=== PATIENT | male | born 1975 | race Caucasian/White ===

== ENCOUNTER 2020-02-11 18:09 | Emergency (ER) | payer OTHER, SELFPAY ==
[2020-02-11 18:16] VITALS: BP 148/89; PULSE 97; RESP 20; TEMP 37; O2SAT 99
--- NOTE | 2020-02-11 18:39 | ED.SKABFB ---
HPI - Skin/Abscess/Foreign Bdy General Chief complaint: Skin/Abscess/Foreign Body Stated complaint: right elbow infection Time Seen by Provider: 02/11/20 18:27 Source: patient and RN notes reviewed Mode of arrival: ambulatory Limitations: no limitations History of Present Illness HPI narrative: Patient presents today complaining of sores to his right elbow x1 month. States he has been scrubbing his skin with bleach when he gets in the shower. States the areas have improved, but have not gone fully away. He also has some bumps to his left lower leg started to improve. Hx of abscesses and cysts to the face in the past. He has not seen his PCP since onset of symtpoms. Related Data Allergies Allergy/AdvReac Type Severity Reaction Status Date / Time No Known Allergies Allergy Unknown Verified 02/11/20 18:30 Review of Systems Review of Systems: Narrative: CONSTITUTIONAL: Denies body aches, fever, chills, or sweats. EYES: Denies visual changes, redness, or discharge. ENT: Denies rhinorrhea, congestion, sore throat, or otalgia. CARDIOVASCULAR: Denies chest pain, palpitations, or edema. RESPIRATORY: Denies cough or dyspnea. GASTROINTESTINAL: Denies abdominal pain, nausea, vomiting, or diarrhea. GENITOURINARY: Denies dysuria or hematuria. SKIN: Denies rash, itching. +Bumps to right elbow and left lower leg MUSCULOSKELETAL: Denies back pain, joint pain, or myalgia. NEUROLOGIC: Denies headache, numbness, tingling, or weakness. PSYCH: Denies depression or anxiety. [facility] Social History Social History Alcohol intake: never Comments At time of signature, I have reviewed and agree with nursing past medical, surgical, social and family history unless otherwise noted. Please see nursing chart for further information. There is no relevant family history pertinent to the presenting complaint Exam Narrative: Exam Narrative: GENERAL: Well-appearing, well-nourished, and in no acute distress. HEAD: Normocephalic, atraumatic. EYES: EOMI. No redness or drainage. Conjunctivae normal. ENT: Mucous membranes pink and moist. NECK: Normal AROM. CHEST: No respiratory distress. EXTREMITIES: Normal range of motion. No edema. SKIN: Warm, dry, no rash. Capillary refill normal. Normal skin turgor. Patient has an area of healing erythema to the right elbow with 2 very small pustules. No induration or fluctuance noted. Has 1 mildly erythematous scabbed, drying lesion to the left anterior lower leg. NEURO: No focal deficits. Alert and oriented x3. Gait steady. PSYCH: Normal affect. No signs of depression or anxiety. Course Vital Signs Vital signs: Vital Signs Temperature 98.6 F 02/11/20 18:16 Pulse Rate 97 02/11/20 18:16 Respiratory Rate 20 02/11/20 18:16 Blood Pressure 148/89 H 02/11/20 18:16 Pulse Oximetry 99 02/11/20 18:16 Temperature 98.6 F 02/11/20 18:16 Pulse Rate 97 02/11/20 18:16 Respiratory Rate 20 02/11/20 18:16 Blood Pressure 148/89 H 02/11/20 18:16 Pulse Oximetry 99 02/11/20 18:16 Reviewed. Pt has been instructed to follow up with his PCP regarding his elevated blood pressure today. MDM - Skin/Abscess/Foreign Bdy Differential Diagnosis Differential diagnosis: Likely abscess of skin or subcutaneous tissue, cellulitis, eczema, insect bites, impetigo and contact dermatitis Critical Care Time Critical Care Time Critical Care Time: No Discharge Plan Discharge Clinical Impression: Pustular dermatitis Patient Disposition: Home, Self-Care Condition: Stable Instructions: Antibiotic Form Additional Instructions: Please take the clindamycin as prescribed until gone. Follow-up with your doctor in 3 to 4 days if symptoms are not improving. Your blood pressure was elevated above 120/80 today at Urgent Care. This puts you above the threshold for follow up. Please schedule a followup visit with your personal physician as soon as possible, for further evaluation and treatment. Amelia
== END 2020-02-11 18:45 | disposition home or self-care (01) ==
PROVIDERS: Emergency Provider Nurse Practitioner
DX: L30.8 Other specified dermatitis (principal)
CPT/HCPCS: 99213; G0463

== ENCOUNTER 2020-05-08 14:09 | Emergency (ER) | payer OTHER, SELFPAY ==
--- NOTE | ~2020-05-08 | XR_ITS ---
EXAMINATION: XR chest 2V DATE: 05/08/2020 15:33 INDICATION: Shortness of breath TECHNIQUE: PA and lateral views of the chest are obtained. COMPARISON: None available FINDINGS: There are minimal airspace opacities of the mid and lower lung zones. There is no pleural e ffusion or pneumothorax. The cardiomediastinal silhouette is normal. The visualized bones and soft ti ssues are unremarkable. IMPRESSION: 1. Minimal airspace opacities of the mid and lower lung zones, consistent with atelectasis versus pne umonia. Reviewed, dictated and finalized at location B. IMPRESSION: 1. Minimal airspace opacities of the mid and lower lung zones, consistent with atelectasis versus pneumonia.
--- NOTE | ~2020-05-08 | CT_ITS ---
EXAMINATION: CT abdomen pelvis w con DATE: 05/08/2020 16:37 INDICATION: Diffuse abdominal pain. Abdominal distention TECHNIQUE: Computed tomography (CT) of the abdomen and pelvis was performed with 100 cc Omnipaque 350 intravenous contrast. Automated exposure control and iterative reconstruction technique were employe d. Exam dose: 1042.13 mGy-cm total exam DLP. COMPARISON: None. FINDINGS: Emphysematous changes of the lungs are noted. No pulmonary consolidation or mass lesion is noted. Normal heart size. No pericardial or pleural effusion. The liver, gallbladder, bile ducts, spleen, pancreas, pancreatic duct, and adrenal glands are unremar kable. Exophytic up to 2.8 cm upper pole right renal cyst. 1 cm hypoenhancing mid lateral left renal lesion with attenuation of 19 Hounsfield units; this is indeterminate, possibly a cyst. Consider foll ow-up CT imaging in 6 months; of earlier diagnosis is desired, consider MR kidney examination. No urinary tract calculus or hydroureteronephrosis. The urinary bladder is evacuated. Normal caliber of the abdominal aorta. No intraperitoneal or retroperitoneal or pelvic mass lesion or adenopathy or ascites. Very small sliding hiatal hernia. No bowel obstruction, bowel wall thickening, pneumatosis or intrape ritoneal free air. Normal appendix. Small fat-containing umbilical hernia. There is severe degenerative disc disease at L4-5 and moderate degenerative disc disease at L5-S1 wit h vacuum phenomenon. IMPRESSION: Emphysema 2.8 cm exophytic right renal cyst 1 cm hypoenhancing mid lateral left renal lesion with attenuation 19 Hounsfield units, most likely a cyst; consider MR imaging now or follow-up CT imaging in 6 months Very small sliding hiatal hernia Reviewed, dictated and finalized at [facility]. Reviewed, dictated and finalized at location A.
[2020-05-08 14:12] VITALS: BP 143/100; PULSE 110; RESP 18; TEMP 36.3; O2SAT 99
--- NOTE | 2020-05-08 14:17 | ECG_ITS ---
Measurements Intervals [place] Rate: 111 P: 75 FL: 149 QRS: -36 QRSD: 96 T: 55 QT: 318 QTc: 433 Interpretive Statements SINUS TACHYCARDIA LEFT AXIS DEVIATION INCOMPLETE RIGHT BUNDLE BRANCH BLOCK BASELINE WANDER- I, II, III ABNORMAL ECG Electronically Signed On 05-08-2020 15:54:02 CDT by Luis Ferro D.O.
[2020-05-08 14:37] LABS: Basophils Absolute Auto 0.1 K/mm3 (0.0-0.1); Basophils Percent Auto 0.9 % (0.2-1.2); Eosinophils Absolute Auto 0.5 K/mm3 (0-0.3); Hematocrit 48.7 % (42.0-52.0); Hemoglobin 16.7 g/dL (14.0-18.0); Immature Granulocyte Absolute 0.05 K/mm3 (0.00-0.031); Immature Granulocyte Percent A 0.5 % (0-0.5); Lymphocytes Absolute Auto 2.21 K/mm3 (0.9-3.2); Lymphocytes Percent Auto 21.6 % (18.3-44.2); Mean Corpuscular HGB Conc 34.3 g/dl (32-36); Mean Corpuscular Hemoglobin 29.8 pg (26-34); Monocytes Absolute Auto 0.7 K/mm3 (0.1-0.6); Monocytes Percent Auto 7.2 % (2.6-8.5); Neutrophils Absolute Auto 6.6 K/mm3 (1.3-6.7); Neutrophils Percent Auto 64.8 % (45.5-73.1); Platelet Count Result 318 k/mm3 (150-375); Red Cell Distribution Width 13.2 % (11.5-14.5); White Blood Count 10.2 K/mm3 (4.5-10.0)
[2020-05-08 14:47] LABS: Anion Gap 11 mmol/L (8-16); Blood Urea Nitrogen 15 mg/dL (9-20); Calcium 9.8 mg/dL (8.4-10.2); Carbon Dioxide 28 mmol/L (22-30); Chloride 98 mmol/L (98-107); Estimated CRCL calculation 110 ml/min; Estimated Glomerular Filt Rate > 60; Glucose 126 mg/dL (75-110); Potassium 3.8 mmol/L (3.4-5.0); Sodium 137 mmol/L (137-145)
--- NOTE | 2020-05-08 15:17 | ED.GENADULT ---
HPI - General Adult General Chief complaint: Shortness of Breath/Dyspnea Stated complaint: not feeling well, trouble breathing Time Seen by Provider: 05/08/20 14:59 Source: patient Mode of arrival: ambulatory Limitations: no limitations History of Present Illness HPI narrative: This patient is a 44 year old male who presents for evaluation left mid back pain. He states he has had this pain for over 1 year but it has gotten worse. He thinks he may have pneumonia. He denies cough, chills, nausea , vomiting or difficulty urinating. He reports he had short episode of right chest pain. He states he was hot earlier but he is unsure if he had a fever. He also reports abdominal discomfort and bloating. His last bowel movement was yesterday at 4 pm. He has gained weight since he stopped smoking last year. Related Data Home Medications Medication Instructions Recorded Confirmed No Home Medications 05/08/20 05/08/20 Allergies Allergy/AdvReac Type Severity Reaction Status Date / Time No Known Allergies Allergy Unknown Verified 05/08/20 14:16 Review of Systems Review of Systems: All systems reviewed & are unremarkable except as noted in HPI and below Constitutional: Constitutional: Denies chills and Denies fever(s) Cardiovascular: Cardiovascular: Reports chest pain (right chest) Respiratory: Respiratory: Denies cough and Denies dyspnea Gastrointestinal: Gastrointestinal: Reports abdominal pain (discomfort), Denies constipation, Denies diarrhea, Denies nausea and Denies vomiting Genitourinary: Genitourinary: Denies hematuria and Denies oliguria PMFSH Past Medical History Medical History (Updated 05/08/20 @ 17:20 by Nancy Block MD) Degenerative joint disease Surgical History Surgical History (Updated 05/08/20 @ 15:19 by Nancy Block MD) No significant past surgical history Social History Social History (Updated 05/08/20 @ 15:19 by Nancy Block MD) Smoking status: Former smoker Alcohol intake: never Gender identity (if verbalized by the patient): Male Exam Narrative: Exam Narrative: GENERAL: Well-appearing, well-nourished, and in no acute distress. HEAD: Normocephalic, atraumatic EYES: PERRLA and EOMI, conjunctiva clear without discharge THROAT:Mucous membranes moist, Oropharynx normal without erythema, exudate, peritonsillar swelling or fluctuance NECK: Supple, without lymphadenopathy or mass RESPIRATORY: No respiratory distress, Airway patent, Respirations non-labored, Clear to auscultation without rales, rhonchi or wheeze HEART: Regular rate and rhythm. No murmur heard. Normal peripheral pulses. ABDOMEN: Soft, Diffuse mild discomfort with palpation, distended, normal active bowel sounds. No masses. No rebound or guarding, No organomegaly. EXTREMITIES: No edema, normal strength with full range of motion. SKIN: Warm, dry, normal color without rash NEURO: Alert and oriented x3. CN 2-12 grossly intact. No focal deficits. PSYCH: Normal mood and affect. Course Reevaluation(s) Reevaluation #1: I reviewed with patient CT report showing emphysema and renal cyst. His family is at bedside. I discussed importance of follow up . No pneumonia Date: 05/08/20 Time: 17:17 Vital Signs Vital signs: Vital Signs Temperature 97.3 F L 05/08/20 14:12 Pulse Rate 110 H 05/08/20 14:12 Respiratory Rate 18 05/08/20 14:12 Blood Pressure 143/100 H 05/08/20 14:12 Pulse Oximetry 99 05/08/20 14:12 Temperature 97.3 F L 05/08/20 14:12 Pulse Rate 96 05/08/20 15:30 Respiratory Rate 16 05/08/20 15:30 Blood Pressure 118/93 H 05/08/20 15:30 Pulse Oximetry 96 05/08/20 15:30 Medical Decision Making Vital Signs Vital Signs: Vital Signs Temperature 97.3 F L 05/08/20 14:12 Pulse Rate 110 H 05/08/20 14:12 Respiratory Rate 18 05/08/20 14:12 Blood Pressure 143/100 H 05/08/20 14:12 Pulse Oximetry 99 05/08/20 14:12 Temperature 97.3 F L 09
[2020-05-08 15:30] VITALS: BP 118/93; PULSE 96; RESP 16; O2SAT 96
[2020-05-08 15:43] LABS: INR 0.9; Prothrombin Time 12.3 Seconds (11.1-14.7)
[2020-05-08 15:44] LABS: Partial Thromboplastin Time 31.9 SECONDS (22.3-36.8)
[2020-05-08 16:11] LABS: D Dimer 0.27 ug/mL (<0.48)
[2020-05-08 16:12] LABS: Alanine Aminotransferase 66 U/L (4-50); Albumin Level 4.7 g/dL (3.5-5.1); Alkaline Phosphatase 101 U/L (38-126); Aspartate Amino Transferase 43 U/L (17-59); Bilirubin,Total 0.9 mg/dL (0.2-1.3); Lipase 80 U/L (23-300); Magnesium 2.1 mg/dL (1.6-2.3)
[2020-05-08 16:22] LABS: Troponin I < 0.012 ng/mL (0.000-0.034)
[2020-05-08 17:04] LABS: Add Urine Microscopic? NO; Appearance Urine Clear (Clear); Bilirubin Urine Negative (Negative); Blood Urine Negative (Negative); Color Urine Yellow (Yellow); Glucose Urine UA Negative (Negative); Ketones Urine Negative (Negative); Leukocyte Esterase Ur Negative LEU/UL (Negative); Nitrate Urine Negative (Negative); Protein Urine Negative (Negative); Specific Grav Ur 1.028 (1.001-1.035); Urobilinogen Urine Negative mg/dL (<2.0)
[2020-05-08 17:35] VITALS: BP 152/86; PULSE 84; RESP 16; O2SAT 98
== END 2020-05-08 17:35 | disposition home or self-care (01) ==
PROVIDERS: Emergency Medicine; Emergency Provider General Practice
DX: R14.0 Abdominal distension (gaseous) (principal); N28.1 Cyst of kidney, acquired; R10.9 Unspecified abdominal pain; Z87.891 Personal history of nicotine dependence; J43.9 Emphysema, unspecified; K44.9 Diaphragmatic hernia without obstruction or gangrene; M51.36 Other intervertebral disc degeneration, lumbar region; I45.10 Unspecified right bundle-branch block; R00.0 Tachycardia, unspecified
CPT/HCPCS: 36415; 71046; 74177; 80048; 80076; 81003; 83605; 83690; 83735; 84484; 85025; 85380; 85610; 85730; 93005; 99284; Q9967

== ENCOUNTER 2022-02-07 20:42 | Emergency (ER) | payer OTHER, SELFPAY ==
--- NOTE | ~2022-02-07 | XR_ITS ---
EXAMINATION: XR chest 2V Exam Date/Time: 02/07/2022 21:09 CDT HISTORY: LT SIDED chest pain TODAY, cough, BLOOD SHOT EYES X 1 WK Comparison: 05/08/2020. RESULT: Lines, tubes, and devices: None. Lungs and pleura: Clear. Cardiomediastinal silhouette: Stable cardiomediastinal silhouette. Other: No acute osseous or upper abdominal finding. IMPRESSION: No acute cardiopulmonary process. Reviewed, dictated and finalized at location K.
[2022-02-07 20:44] VITALS: BP 132/87; PULSE 83; RESP 16; TEMP 36.3; O2SAT 98
[2022-02-07 20:56] VITALS: BP 143/96; PULSE 87; RESP 17; O2SAT 97
[2022-02-07 21:04] VITALS: RESP 20; O2SAT 96
--- NOTE | 2022-02-07 21:04 | ECG_ITS ---
Measurements Intervals [place] Rate: 82 P: 66 SC: 173 QRS: 9 QRSD: 99 T: 57 QT: 360 QTc: 421 Interpretive Statements SINUS RHYTHM NORMAL ECG COMPARED TO ECG 05/08/2020 14:21:54 SINUS RHYTHM NOW PRESENT Electronically Signed On 02-08-2022 11:03:34 CDT by Kannan Mendez M.D.
--- NOTE | 2022-02-07 21:10 | PC.NURSE ---
Patient taken to xray via stretcher.
--- NOTE | 2022-02-07 21:13 | ED.GENADULT ---
HPI - General Adult General Chief complaint: Unspecified Stated complaint: eyes are bloodshot Time Seen by Provider: 02/07/22 20:54 Source: patient History of Present Illness HPI narrative: Patient presents with red eyes. Patient has no complaints regarding his eyes reports his family members noted and instructed him to go to the ER for further evaluation. Patient ports he had symptoms for approximately 1 week in addition to his red eyes for a week he not been feeling well has had mild cough and congestion as well as some left-sided chest pain. He also reports some mild shortness of breath over this time. Reports overall he is feeling much improved cough is improving, congestion is improving and shortness of breath is improving. However since his symptoms are not resolved he came to the ER for further evaluation. Pain is achy, constant on the left side of his chest, no radiation, no clear aggravating or alleviating factors. Related Data Allergies Allergy/AdvReac Type Severity Reaction Status Date / Time No Known Allergies Allergy Unknown Verified 02/07/22 21:06 Review of Systems Review of Systems: CONSTITUTIONAL: Denies fever, chills, or sweats. EYES: Denies visual changes, or discharge. ENT: Denies rhinorrhea, congestion, sore throat, or otalgia. CARDIOVASCULAR: Denies palpitations, or edema. RESPIRATORY: Reports cough and shortness of breath are improving GASTROINTESTINAL: Denies abdominal pain, nausea, vomiting, or diarrhea. GENITOURINARY: Denies dysuria or hematuria. SKIN: Denies rash or itching. MUSCULOSKELETAL: Denies back pain, joint pain, or myalgia. NEUROLOGIC: Denies headache, numbness, dizziness, or weakness. PSYCHIATRIC: Denies anxiety or depression. All systems reviewed & are unremarkable except as noted in HPI and below PMFSH Past Medical History Medical History Degenerative joint disease Surgical History Surgical History No significant past surgical history Social History Social History Smoking status: Former smoker Alcohol intake: never Gender identity (if verbalized by the patient): Male Exam Narrative: GENERAL: Well-appearing, well-nourished, and in no acute distress. HEAD: Normocephalic, atraumatic. EYES: PERRLA and EOMI. mild diffuse conjunctival injection bilaterally no drainage no hyphema or hypopyon ENT: Nares clear, no rhinorrhea or epistaxis. Mucous membranes moist. NECK: Supple. No masses. No JVD CHEST: Clear to auscultation. No respiratory distress. No wheezes rales or rhonchi HEART: Regular rate and rhythm. No murmur heard. Normal peripheral pulses. ABDOMEN: Soft, nontender, nondistended EXTREMITIES: Normal range of motion. No edema. SKIN: Warm, dry, no rash. NEURO: No focal deficits. Alert and oriented x3. PSYCH: Normal mood and affect. Course Reevaluation(s) Reevaluation #1: Patient resting comfortably results and plan reviewed with patient. Patient is comfortable outpatient plan. Patient was counseled as he has hypertension previously diagnosed he does not take any antihypertensive medications he was counseled long-term complications of untreated hypertension. Date: 02/07/22 Time: 22:28 Vital Signs Vital signs: Vital Signs Temperature 36.3 C L 02/07/22 20:44 Pulse Rate 83 02/07/22 20:44 Respiratory Rate 16 02/07/22 20:44 Blood Pressure 132/87 02/07/22 20:44 Pulse Oximetry 98 02/07/22 20:44 Oxygen Delivery Room Air 02/07/22 20:44 Temperature 36.3 C L 02/07/22 20:44 Pulse Rate 87 02/07/22 20:56 Respiratory Rate 20 02/07/22 21:04 Blood Pressure 143/96 H 02/07/22 20:56 Pulse Oximetry 96 02/07/22 21:04 Oxygen Delivery Room Air 02/07/22 20:44 Medical Decision Making MDM Narrative Medical decision making narrative: H&P as above, vss, pt looks clinically w
[2022-02-07 21:32] LABS: Basophils Absolute Auto 0.1 K/mm3 (0.0-0.1); Basophils Percent Auto 0.5 % (0.2-1.2); Eosinophils Absolute Auto 0.3 K/mm3 (0-0.3); Eosinophils Percent Auto 2.1 % (0-4.4); Hematocrit 42.1 % (42.0-52.0); Hemoglobin 13.7 g/dL (14.0-18.0); Immature Granulocyte Absolute 0.11 K/mm3 (0.00-0.031); Immature Granulocyte Percent A 0.9 % (0-0.5); Lymphocytes Absolute Auto 2.49 K/mm3 (0.9-3.2); Lymphocytes Percent Auto 19.4 % (18.3-44.2); Mean Corpuscular HGB Conc 32.5 g/dl (32-36); Mean Corpuscular Hemoglobin 28.8 pg (26-34); Mean Corpuscular Volume 88.4 fl (80-100); Mean Platelet Volume 9.4 fl (7.4-10.4); Monocytes Absolute Auto 0.6 K/mm3 (0.1-0.6); Neutrophils Absolute Auto 9.2 K/mm3 (1.3-6.7); Neutrophils Percent Auto 72.1 % (45.5-73.1); Platelet Count Result 271 k/mm3 (150-375); Red Blood Count 4.76 M/mm3 (4.6-6.20); Red Cell Distribution Width 13.5 % (11.5-14.5); White Blood Count 12.8 K/mm3 (4.5-10.0)
[2022-02-07 21:42] LABS: Alanine Aminotransferase 53 U/L (6-50); Albumin Level 4.1 g/dL (3.5-5.1); Alkaline Phosphatase 98 U/L (38-126); Anion Gap 5 mmol/L (8-16); Aspartate Amino Transferase 31 U/L (17-59); Bilirubin,Total 0.5 mg/dL (0.2-1.3); Blood Urea Nitrogen 14 mg/dL (9-20); Calcium 8.6 mg/dL (8.4-10.2); Carbon Dioxide 30 mmol/L (22-30); Chloride 103 mmol/L (98-107); Estimated CRCL calculation 108 ml/min; Estimated Glomerular Filt Rate > 60; Glucose 111 mg/dL (65-110); Potassium 3.7 mmol/L (3.4-5.0); Sodium 138 mmol/L (137-145)
[2022-02-07 21:53] LABS: Troponin I < 0.012 ng/mL (0.000-0.034)
== END 2022-02-07 22:43 | disposition home or self-care (01) ==
PROVIDERS: Emergency Provider Emergency Medicine
DX: B34.9 Viral infection, unspecified (principal); Z87.891 Personal history of nicotine dependence
CPT/HCPCS: 36415; 71046; 80053; 84484; 85025; 93005; 99284

== ENCOUNTER 2022-11-21 18:25 | Emergency (ER) | payer OTHER, SELFPAY ==
[2022-11-21] VITALS (16 sets, daily range): BP systolic 121–138; BP diastolic 78–93; PULSE 78–93; RESP 17–18; TEMP 36.4; O2SAT 97–100
--- NOTE | ~2022-11-21 | CT_ITS ---
EXAMINATION: CT abdomen pelvis w con DATE: 11/21/2022 21:08 INDICATION: Right flank pain, intermittently radiating into the groin TECHNIQUE: Computed tomography (CT) of the abdomen and pelvis was performed with 100 CC Omnipaque 350 intravenous contrast. Automated exposure control and iterative reconstruction technique were employe d. Exam dose: 1269.76 mGy-cm total exam DLP. COMPARISON: 05/08/2020 CT abdomen pelvis FINDINGS: The lung bases are clear of infiltrate or consolidation. Normal heart size. No pericardial or pleural effusion. The liver, gallbladder, bile ducts, spleen, pancreas, pancreatic duct, and adrenal glands are unremar kable except for hepatic steatosis.. 3 cm upper pole right renal cyst. 1 cm left renal cyst. No urinary tract calculus or hydroureteronephrosis. Normal caliber of the abdominal aorta. No intraperitoneal or retroperitoneal or pelvic mass lesion or adenopathy or ascites. Normal appendix. No bowel obstruction, bowel wall thickening, pneumatosis or intraperitoneal free air. Severe degenerative disc disease at L4-5. No suspicious osteolytic or osteoblastic lesions. IMPRESSION: Renal cysts. No urinary tract calculus or hydroureteronephrosis Normal appendix. Hepatic steatosis. Reviewed, dictated and finalized at [facility]. Reviewed, dictated and finalized at location A.
[2022-11-21 19:33] LABS: Appearance Urine Clear (Clear); Bilirubin Urine Negative (Negative); Blood Urine Negative (Negative); Color Urine Yellow (Yellow); Glucose Urine UA Negative (Negative); Ketones Urine Trace mg/dL (Negative); Leukocyte Esterase Ur Negative LEU/UL (Negative); Nitrate Urine Negative (Negative); Protein Urine Negative (Negative); Specific Grav Ur 1.024 (1.001-1.035); pH Urine 6.5 (5.0-9.0)
[2022-11-21 19:37] LABS: Add Urine Microscopic? NO
[2022-11-21 19:39] LABS: Basophils Absolute Auto 0.1 K/mm3 (0.0-0.1); Basophils Percent Auto 0.7 % (0.2-1.2); Eosinophils Absolute Auto 0.2 K/mm3 (0-0.3); Eosinophils Percent Auto 2.2 % (0-4.4); Hematocrit 47.1 % (42.0-52.0); Hemoglobin 15.7 g/dL (14.0-18.0); Immature Granulocyte Absolute 0.02 K/mm3 (0.00-0.031); Immature Granulocyte Percent A 0.2 % (0-0.5); Lymphocytes Percent Auto 25.5 % (18.3-44.2); Mean Corpuscular HGB Conc 33.3 g/dl (32-36); Mean Corpuscular Hemoglobin 29.5 pg (26-34); Mean Corpuscular Volume 88.5 fl (80-100); Mean Platelet Volume 9.7 fl (7.4-10.4); Monocytes Absolute Auto 0.8 K/mm3 (0.1-0.6); Neutrophils Absolute Auto 5.6 K/mm3 (1.3-6.7); Neutrophils Percent Auto 62.4 % (45.5-73.1); Platelet Count Result 347 k/mm3 (150-375); Red Blood Count 5.32 M/mm3 (4.6-6.20); Red Cell Distribution Width 13.2 % (11.5-14.5)
[2022-11-21 20:26] LABS: Basophils Absolute Auto 0.1 K/mm3 (0.0-0.1); Basophils Percent Auto 0.6 % (0.2-1.2); Eosinophils Absolute Auto 0.2 K/mm3 (0-0.3); Eosinophils Percent Auto 2.3 % (0-4.4); Hematocrit 45.3 % (42.0-52.0); Hemoglobin 14.9 g/dL (14.0-18.0); Immature Granulocyte Absolute 0.05 K/mm3 (0.00-0.031); Immature Granulocyte Percent A 0.6 % (0-0.5); Lymphocytes Absolute Auto 2.43 K/mm3 (0.9-3.2); Lymphocytes Percent Auto 27.5 % (18.3-44.2); Mean Corpuscular HGB Conc 32.9 g/dl (32-36); Mean Corpuscular Hemoglobin 29.3 pg (26-34); Mean Platelet Volume 9.7 fl (7.4-10.4); Monocytes Absolute Auto 0.8 K/mm3 (0.1-0.6); Monocytes Percent Auto 9.3 % (2.6-8.5); Neutrophils Absolute Auto 5.3 K/mm3 (1.3-6.7); Neutrophils Percent Auto 59.7 % (45.5-73.1); Platelet Count Result 300 k/mm3 (150-375); Red Blood Count 5.09 M/mm3 (4.6-6.20); Red Cell Distribution Width 13.2 % (11.5-14.5); White Blood Count 8.9 K/mm3 (4.5-10.0)
[2022-11-21 20:46] LABS: Alanine Aminotransferase 41 U/L (6-50); Albumin Level 4.2 g/dL (3.5-5.1); Alkaline Phosphatase 80 U/L (38-126); Anion Gap 7 mmol/L (8-16); Aspartate Amino Transferase 30 U/L (17-59); Bilirubin,Total 0.6 mg/dL (0.2-1.3); Blood Urea Nitrogen 13 mg/dL (9-20); Calcium 9.2 mg/dL (8.4-10.2); Carbon Dioxide 32 mmol/L (22-30); Chloride 102 mmol/L (98-107); Estimated CRCL calculation 115 ml/min; Estimated Glomerular Filt Rate > 60; Glucose 120 mg/dL (65-110); Lipase 76 U/L (23-300); Potassium 3.6 mmol/L (3.4-5.0); Sodium 141 mmol/L (137-145)
--- NOTE | 2022-11-21 20:54 | PC.NURSE ---
Patient taken to CT at this time.
--- NOTE | 2022-11-21 21:32 | ED.ABDPAIN ---
HPI - Abdominal Pain General Chief Complaint: Abdominal Pain Stated Complaint: abd/lower back and groin pain Time Seen by Provider: 11/21/22 19:34 History of Present Illness HPI narrative: This is a 47-year-old male with no significant past medical history, who presents to the emergency department complaining of back pain. He states the pain is sharp, rated 6/10, worse in the morning and with movement at the hip. He also complains of anterior abdominal cramping, associated with suprapubic fullness that improves with urination. Related Data Home Medications Medication Instructions Recorded Confirmed aspirin 81 mg tablet,delayed mg 11/21/22 release diclofenac potassium 50 mg tablet 50 mg PO BID 11/21/22 11/21/22 esomeprazole magnesium 20 mg 20 mg PO DAILY 11/21/22 11/21/22 capsule,delayed release tamsulosin 0.4 mg capsule 0.4 mg PO DAILY 11/21/22 11/21/22 Allergies Allergy/AdvReac Type Severity Reaction Status Date / Time No Known Allergies Allergy Unknown Verified 11/21/22 18:28 Review of Systems Review of Systems: CONSTITUTIONAL: Denies fever, chills, or sweats. CARDIOVASCULAR: Denies chest pain, palpitations, or edema. RESPIRATORY: Denies cough or dyspnea. GASTROINTESTINAL: Suprapubic cramping denies nausea, vomiting, or diarrhea. GENITOURINARY: Denies dysuria or hematuria. SKIN: Denies rash or itching. MUSCULOSKELETAL: Back pain denies joint pain, or myalgia. NEUROLOGIC: Denies headache, numbness, dizziness, or weakness. PSYCHIATRIC: Denies anxiety or depression. PMFSH Past Medical History Medical History Degenerative joint disease Surgical History Surgical History No significant past surgical history Social History Social History Smoking status: Former smoker Alcohol intake: never Gender identity (if verbalized by the patient): Male Exam Narrative: GENERAL: Well-developed, well-nourished, and in no acute distress. HEAD: Normocephalic, atraumatic. EYES: PERRLA and EOMI. ENT: Nares clear, no rhinorrhea or epistaxis. Mucous membranes moist. Oropharynx without tonsillar hypertrophy exudate or other lesions. CHEST: Clear to auscultation. No respiratory distress. No wheezes rales or rhonchi HEART: Regular rate and rhythm. No murmur heard. Normal peripheral pulses. ABDOMEN: Soft, nontender, nondistended, normal active bowel sounds. BACK: Mild right paraspinal tenderness to palpation at approximately L3-L4. No midline spine tenderness to palpation, no step-off or crepitus EXTREMITIES: Normal range of motion. No edema. SKIN: Warm, dry, no rash. NEURO: No focal deficits. Alert and oriented x3. PSYCH: Normal mood and affect. Course Course Emergency Course: 21:45 - CBC unremarkable. Chemistries unremarkable. UA negative. CT demonstrated severe degenerative disc disease at L4-L5, but was otherwise unremarkable. I suspect the patient's back pain is related to degenerative disc disease. I suspect his anterior abdominal pain is related to urinary retention. I discussed findings with the patient with recommendations for him to follow-up with his primary care doctor. Discussed return and emergency precautions including signs/symptoms of ACS and acute abdomen. The patient voiced understanding and is comfortable with the plan. All questions answered to his satisfaction. Vital Signs Vital signs: Vital Signs Temperature 97.5 F L 11/21/22 18:30 Pulse Rate 93 11/21/22 18:30 Respiratory Rate 18 11/21/22 18:30 Blood Pressure 138/88 11/21/22 18:30 Pulse Oximetry 99 11/21/22 18:30 Temperature 97.5 F L 11/21/22 18:30 Pulse Rate 78 11/21/22 20:31 Respiratory Rate 17 11/21/22 20:31 Blood Pressure 121/78 11/21/22 20:31 Pulse Oximetry 98 11/21/22 20:31 MDM - Abdominal Pain [facility] Narrative [facility]
== END 2022-11-21 22:25 | disposition home or self-care (01) ==
PROVIDERS: Emergency Medicine; Emergency Provider Preventive Medicine Aerospace Medicine
DX: M51.36 Other intervertebral disc degeneration, lumbar region (principal); Z87.891 Personal history of nicotine dependence
CPT/HCPCS: 36415; 74177; 80053; 81003; 83690; 85025; 99284; Q9967

== ENCOUNTER 2023-03-05 12:32 | Emergency (ER) | payer OTHER, SELFPAY ==
[2023-03-05 12:42] VITALS: BP 152/98; PULSE 102; RESP 16; TEMP 36.4; O2SAT 98
[2023-03-05] MEDS: cefTRIAXone 1 GM, LIDOCAINE HCL 1% LOCAL INJ 2.1 ML IM (12:55)
--- NOTE | 2023-03-05 13:07 | ED.SKABFB ---
HPI - Skin/Abscess/Foreign Bdy General Chief complaint: Eye Problems Stated complaint: Eye swollen, red, irritated, painful Time Seen by Provider: 03/05/23 12:45 Source: patient Mode of arrival: ambulatory Limitations: no limitations History of Present Illness HPI narrative: 47-year-old male presents with with complaint of redness, swelling, open scab with drainage to left-sided face involving nose. States that he had a scab to his forehead last week that cleared up on his own. Now had open scabbed to left side of nose that has gotten significantly worse over the past 2 days. States that he did wash his dog in a cheema with [place]jana just soap after the dog had rolled around in fish kits. Is concerned that he may have gotten infection from getting the dirty water on his face and in his eyes. He denies any vision changes, no redness or drainage from eyes. Afebrile. Reports that drainage was ?very smelly ?. All systems reviewed and negative except as noted above. Related Data Allergies Allergy/AdvReac Type Severity Reaction Status Date / Time No Known Allergies Allergy Unknown Verified 03/05/23 12:41 Review of Systems Review of Systems: CONSTITUTIONAL: Denies fever, chills, or sweats. EYES: Denies visual changes, redness, or discharge. ENT: Denies rhinorrhea, congestion, sore throat, or otalgia. CARDIOVASCULAR: Denies chest pain, palpitations, or edema. RESPIRATORY: Denies cough or dyspnea. GASTROINTESTINAL: Denies abdominal pain, nausea, vomiting, or diarrhea. GENITOURINARY: Denies dysuria or hematuria. SKIN: Denies rash or itching. Reports redness, swelling, open draining wound to face. MUSCULOSKELETAL: Denies back pain, joint pain, or myalgia. NEUROLOGIC: Denies headache, numbness, or weakness. PSYCHIATRIC: Denies anxiety or depression. All other systems reviewed are negative, except as documented in HPI. [facility] Past Medical History Medical History Degenerative joint disease Surgical History Surgical History No significant past surgical history Social History Social History Smoking status: Former smoker Alcohol intake: never Gender identity (if verbalized by the patient): Male Comments At time of signature, agree with nursing past medical, surgical, social and family history. There is no relevant family history pertinent to the presenting complaint. Exam Narrative: GENERAL: This is a well-nourished, well-developed patient, in no apparent distress. HEAD: normocephalic, atraumatic. EYES: PERRL. Sclera clear/white. Vision is grossly intact. EARS: External ears normal NOSE: no obvious nasal discharge, nares without redness, no rhinorrhea. Erythema and swelling to external nose with tenderness on palpation open scabbing to left side of nose with no drainage at this time. No fluctuance. NECK: Neck supple, non-tender without lymphadenopathy, masses or thyromegaly. CARDIOVASCULAR: Regular rate and rhythm without murmurs, gallops, or rubs. RESPIRATORY: Clear to auscultation. Breath sounds equal bilaterally. No wheezes, rales, or rhonchi. SKIN: warm, Dry, intact with no suspicious lesions or rash, good texture and turgor. NEURO: awake, alert, and oriented to person, place and time. There were no obvious focal neurologic abnormalities. EXTREMITIES: No joint tenderness, effusion, or edema noted. HENMT: Head images: 1. Erythema and swelling Course Course Level of Care: Express Care Visit Vital Signs Vital signs: Vital Signs Temperature 36.4 C 03/05/23 12:42 Pulse Rate 102 H 03/05/23 12:42 Respiratory Rate 16 03/05/23 12:42 Blood Pressure 152/98 H 03/05/23 12:42 Pulse Oximetry 98 03/05/23 12:42 Temperature 36.4 C 03/05/23 12:42 Pulse Rate 102 H 03/05/23 12:42 Respiratory Rate 16 03/05/23 12:42 Blo
== END 2023-03-05 13:15 | disposition home or self-care (01) ==
PROVIDERS: Emergency Provider Nurse Practitioner Family
DX: J34.0 Abscess, furuncle and carbuncle of nose (principal); H00.035 Abscess of left lower eyelid; L03.211 Cellulitis of face; Z87.891 Personal history of nicotine dependence
CPT/HCPCS: 96372; 99213; G0463; J0696

== ENCOUNTER 2023-06-07 18:19 | Emergency (ER) | payer OTHER, SELFPAY ==
--- NOTE | ~2023-06-07 | XR_ITS ---
EXAMINATION: XR chest 2V Exam Date/Time: 06/07/2023 19:23 CDT HISTORY: COUGH, SOB X 2 WKS Comparison: 02/07/2022. RESULT: Lines, tubes, and devices: None. Lungs and pleura: Technical artifact obscures radiographic detail in the left upper lung. Cardiomediastinal silhouette: Stable. Other: No acute osseous or upper abdominal finding. IMPRESSION: No acute cardiopulmonary process. Reviewed, dictated and finalized at location K.
--- NOTE | 2023-06-07 18:32 | ED.URI ---
HPI - URI/Sore Throat General Chief Complaint: Upper Respiratory Infection Stated Complaint: Pneumonia Time Seen by Provider: 06/07/23 18:32 Source: patient Mode of arrival: ambulatory Limitations: no limitations History of Present Illness HPI Narrative: Don is a 47-year-old male patient presenting to the clinic today with complaints of possible pneumonia. He reports he has had cough and congestion times the past few days. He denies any fever or chills. Is coughing up some white phlegm. Rates his shortness of breath a 2 or 3/10 currently. Thinks he may have pneumonia. States, ?I just need medicine?. MD elicited complaint: cough and other (SOB) Related Data Allergies Allergy/AdvReac Type Severity Reaction Status Date / Time No Known Allergies Allergy Unknown Verified 06/07/23 19:12 Review of Systems Review of Systems: Pertinent positives per HPI. Patient denies any fever, chills, rash, headache, visual changes, dizziness, chest pain, palpitations, nausea, vomiting, diarrhea, constipation, abdominal pain, or any urinary issues. [facility] Past Medical History Medical History Degenerative joint disease Surgical History Surgical History No significant past surgical history Social History Social History Smoking status: Former smoker Alcohol intake: never Gender identity (if verbalized by the patient): Male Comments At the time of my signature, I reviewed and agree with the nursing past medical, surgical, social, and family history. There is no relevant family history pertinent to the patient complaint. Exam Narrative: General: Well-developed, obese in no apparent distress Head: Normocephalic, atraumatic Eyes: Pupils equally round and reactive to light bilaterally, EOM intact, sclera and conjunctive clear, no discharge, lids normal Ears: TMs intact and clear, ear canals clear, no drainage, grossly hearing normal. Nose: Nares patent, clear discharge, no inflammation, no sinus tenderness. Mouth: Oral pharynx without lesions or masses, good dentition, MMM. Neck: Supple, trachea midline, no enlargement of anterior or posterior cervical nodes, no thyroid masses or goiter palpable. Cardio: Regular rate and rhythm, s1 and s2 normal, no murmur appreciated. Resp: Lung sounds tight with expiratory wheezing throughout lung luis, no rhonchi, rales, or rubs. SpO2 is 96% on room air. Patient is able to speak in full sentences Course Course Emergency Course: Portions of this record may have been created with voice recognition software. Level of Care: Express Care Visit Vital Signs Vital signs: Vital Signs Temperature 36.6 C 06/07/23 19:08 Pulse Rate 99 06/07/23 19:08 Respiratory Rate 16 06/07/23 19:08 Blood Pressure 154/91 H 06/07/23 19:08 Pulse Oximetry 96 06/07/23 19:08 Temperature 36.6 C 06/07/23 19:08 Pulse Rate 99 06/07/23 19:08 Respiratory Rate 16 06/07/23 19:08 Blood Pressure 154/91 H 06/07/23 19:08 Pulse Oximetry 96 06/07/23 19:08 Vital signs reviewed MDM - URI/Sore Throat MDM Narrative Medical decision making narrative: At the time of visit patient is resting comfortably on the exam table. Offered to do a hand-held neb treatment in the clinic and patient declined states he does not want to do any of that he just wants medications and be discharge. Offered to do chest x-ray and patient was questioning that however I told him it was important that I find out if he has pneumonia so I cannot treat him appropriately. Patient agrees to having chest x-ray completed. Chest x-ray shows no acute cardiopulmonary process. I suspect patient has bronchitis. Will send in prescription for albuterol inhaler, Tessalon Perles, and prednisone. Supportive measures were discussed with the josseline
[2023-06-07 19:08] VITALS: BP 154/91; PULSE 99; RESP 16; TEMP 36.6; O2SAT 96
== END 2023-06-07 19:46 | disposition home or self-care (01) ==
PROVIDERS: Emergency Provider Nurse Practitioner Family; PCP Internal Medicine
DX: J40 Bronchitis, not specified as acute or chronic (principal); Z87.891 Personal history of nicotine dependence
CPT/HCPCS: 71046; 99213; G0463

== ENCOUNTER 2023-06-13 18:10 | Emergency (ER) | payer OTHER, SELFPAY ==
--- NOTE | ~2023-06-13 | XR_ITS ---
EXAMINATION: XR chest 2V DATE: 06/13/2023 18:34 INDICATION: Shortness of breath and cough TECHNIQUE: PA and lateral views of the chest were obtained. COMPARISON: Chest radiograph dated 06/17/2023 FINDINGS: The lungs remain clear with no focal airspace opacities, pulmonary edema, pleural effusion or pneumot horax. The cardiomediastinal silhouette is normal. Visualized bones and soft tissues are unremarkable . IMPRESSION: 1. No acute cardiopulmonary disease. Reviewed, dictated and finalized at location A.
[2023-06-13 18:17] VITALS: BP 138/82; PULSE 101; RESP 16; TEMP 36.7; O2SAT 93
--- NOTE | 2023-06-13 18:27 | ED.URI ---
HPI - URI/Sore Throat General Chief Complaint: Upper Respiratory Infection Stated Complaint: Cough/Chest Congestion/Shortness of Breath History of Present Illness HPI Narrative: Patient was diagnosed with bronchitis at this facility 06/07/2023 and placed on steroids. Patient presents today with increased shortness of breath states his pulse ox was in the 80s at home. Upon arrival pulse ox is 93% on room air respirations even and nonlabored. No respiratory distress. Related Data Allergies Allergy/AdvReac Type Severity Reaction Status Date / Time No Known Allergies Allergy Unknown Verified 06/13/23 18:59 Review of Systems Review of Systems: CONSTITUTIONAL: Denies chills, or sweats. Reports fever and generalized body aches EYES: Denies visual changes, redness, or discharge. ENT: Denies otalgia. Reports nasal congestion runny nose and sore throat CARDIOVASCULAR: Denies chest pain, palpitations, or edema. RESPIRATORY: Denies dyspnea. Reports occasional cough GASTROINTESTINAL: Denies abdominal pain, nausea, vomiting, or diarrhea. GENITOURINARY: Denies dysuria or hematuria. SKIN: Denies rash or itching. MUSCULOSKELETAL: Denies back pain, joint pain, or myalgia. Reports generalized body aches NEUROLOGIC: Denies headache, numbness, or weakness. PSYCHIATRIC: Denies anxiety or depression. COUNTS INCLUDE 234 BEDS AT THE [facility] Past Medical History Medical History Degenerative joint disease Surgical History Surgical History No significant past surgical history Social History Social History Smoking status: Former smoker Alcohol intake: never Gender identity (if verbalized by the patient): Male Comments At time of signature, agree with nursing past medical, surgical, social and family history. There is no relevant family history pertinent to the presenting complaint Exam Narrative: The patient is a well-developed, well-nourished in no acute distress. SKIN: Skin is warm and dry without erythema, swelling or exudate. There is good turgor. No tenting. HEAD: Atraumatic. Normocephalic. No temporal or scalp tenderness. EYES: Moist and bright. Sclera and conjunctivae normal. No discharge. PERRLA. Extraocular motions intact. Gross visual acuity intact. EARS: Pinna is normal shape and contour. Clear external auditory canals. TM pearly cornell with good cone of light, no erythema or suppuration. Bilateral cerumen noted no gross hearing deficit. NOSE: pink, moist mucosa with good air movement. Clear rhinorrhea without nasal flaring. Septum midline. Mouth: moist mucous membranes. THROAT; mild erythema noted to posterior oropharynx with moderate postnasal drainage. Without exudate or ulceration.. Uvula midline. Normal movement of soft palate. NECK: Supple and nontender with full range of motion without discomfort. No meningeal signs. LUNGS: Equal and bilateral breath sounds without wheezes, rales or rhonchi. CHEST: The chest wall is without retractions or use of accessory muscles. HEART: Has a regular rate and rhythm without murmur, gallops, click or rub. ABDOMEN: Soft, nontender with positive active bowel sounds. No rebound tenderness. EXTREMITIES: Without cyanosis, clubbing or edema. Equal 2+ distal pulses and 2 second capillary refill noted. NEUROLOGIC: alert, active, . The patient moves all extremities with normal muscle strength. Normal muscle tone is noted. Normal coordination is noted. NO focal neurological findings noted. Course Course Level of Care: Express Care Visit Vital Signs Vital signs: Vital Signs Temperature 36.7 C 06/13/23 18:17 Pulse Rate 101 H 06/13/23 18:17 Respiratory Rate 16 06/13/23 18:17 Blood Pressure 138/82 06/13/23 18:17 Pulse Oximetry 93 06/13/23 18:17 Oxygen Delivery Room Air 06/13/23 18:17 Temperature 36.7 C 06/13/23 1
[2023-06-13] MEDS: IPRATROPIUM BR 0.02% INH SOLN 0.5 MG/2.5 ML VIAL INHALATION (18:41)
[2023-06-13] MEDS: ALBUTEROL SULFATE NEB 2.5 MG/3 ML INH INHALATION (18:47)
[2023-06-13] MEDS: methylPREDNISolone SOD SUCC 125 MG VIAL IM (18:48)
[2023-06-13 19:00] VITALS: O2SAT 97
== END 2023-06-13 19:13 | disposition home or self-care (01) ==
PROVIDERS: Emergency Provider Nurse Practitioner Family
DX: J43.9 Emphysema, unspecified (principal); J44.89 Other specified chronic obstructive pulmonary disease; Z87.891 Personal history of nicotine dependence
CPT/HCPCS: 71046; 94640; 96372; 99213; G0463; J2930